=== PATIENT | female | born 1940 | race Caucasian/White ===

== ENCOUNTER → 2017-03-22 | Outpatient (CLI) | payer MEDICARE, BC | END | disposition home or self-care (01) | LOC: HKI 10:45 | PROVIDERS: ATTEND Orthopaedic Surgery | DX: M25.552 Pain in left hip (principal); Z96.643 Presence of artificial hip joint, bilateral; T84.021A Dislocation of internal left hip prosthesis, initial encounter ==

== ENCOUNTER → 2017-04-19 | Outpatient (CLI) | payer MEDICARE, BC ==
--- NOTE | 2017-04-19 11:59 | RADRPT ---
PROCEDURE: XR AP pelvis. CLINICAL INDICATION: Hip pain TECHNIQUE: AP view available for review. COMPARISON: 07/22/2015 FINDINGS: There are bilateral total hip replacements. There is normal mineralization, architecture and alignment. There is no evidence of loosening of th e prosthesis. There is no evidence of hardware failure. No fractures, dislocation or osseous lesions are identified. The joints are unremarkable. There are normal soft tissues. IMPRESSION: Bilateral total hip replacements. Otherwise unremarkable examination. RPTAT: [facility] .Shane Dasilva MD, Date Time Electronically viewed and signed by .Shane Dasilva MD, on 04/19/2017 11:59 .B/
--- NOTE | 2017-04-19 16:04 | RADRPT ---
PROCEDURE: XR left hip. CLINICAL INDICATION: Hip pain TECHNIQUE: AP view available for review. COMPARISON: None available FINDINGS: There is a left total hip replacement. There is no evidence of loosening of the prosthesis. There is no evidence of hardware failure. There is normal mineralization, architecture and alignment. No fr actures are identified. No osseous lesions are present. The joints are unremarkable. The soft tis sues are unremarkable. IMPRESSION: Left total hip replacement Otherwise an unremarkable examination RPTAT: [facility] .Shane Dasilva MD, MD Date Time Electronically viewed and signed by .Shane Dasilva MD, on 04/19/2017 11:58 .B/
== END | disposition home or self-care (01) ==
LOC: HKI 11:01
PROVIDERS: ATTEND Orthopaedic Surgery
DX: M25.552 Pain in left hip (principal); T84.021A Dislocation of internal left hip prosthesis, initial encounter; Z96.643 Presence of artificial hip joint, bilateral
CPT/HCPCS: 72170; 73501